=== PATIENT | female | born 1960 | race Caucasian/White ===

== ENCOUNTER 2020-12-05 16:22 | Observation (INO) | payer OTHER, MEDICARE ==
[~2020-12-05] VITALS: Ht 170.2 cm; Wt 63.5 kg
[~2020-12-05 16:22] MED LIST: CLARITIN10 MG PO; ECOTRIN81 MG PO; MIRALAX17 GM PO; NEURONTIN 300300 MG PO; NORCO 10-325 T1 EACH PO; OMEPRAZOLE20 M1 PO; PRAVASTATIN SOD10 MG PO; VITAMIN C 500500 MG PO; ZOFRAN ODT 4 MG4 MG PO; ZOFRAN4 MG PO
[2020-12-05 17:40] LABS: HEMOGLOBIN 14.1 gm/dl (12.3-15.3); WHITE BLOOD COUNT 10.9 K/UL (4.5-11.0)
[2020-12-05 18:05] LABS: BUN/CREATININE RATIO 23 (0-10)
[2020-12-06 05:01] LABS: HEMOGLOBIN 13.8 gm/dl (12.3-15.3); RED BLOOD COUNT 4.87 M/UL (4.00-5.10); WHITE BLOOD COUNT 12.1 K/UL (4.5-11.0)
[2020-12-06 05:24] LABS: BUN/CREATININE RATIO 25 (0-10)
[2020-12-06] MEDS ORDERED: AMOX TR-K CLV1 EAC4 PO (09:54)
[2020-12-06] MEDS ORDERED: LEVOCETIRIZINE D5 MG PO (09:56)
[2020-12-06] MEDS ORDERED: BREZTRI AEROS10.7 GM INH (09:57)
[2020-12-06] MEDS ORDERED: MELOXICAM15 MG PO (09:58)
[2020-12-06] MEDS ORDERED: SERTRALINE HCL100 MG PO (09:58)
[2020-12-06] MEDS ORDERED: VENTOLIN HFA 66.7 GM INH (09:59)
[2020-12-06] MEDS ORDERED: NITROSTAT0.4 MG SL (10:00)
--- NOTE | 2020-12-06 22:03 | NUR ---
PATIENT REFUSES BED-RAIL PADDING FOR SX PERCAUTIONS
[2020-12-07] MEDS ORDERED: KEPPRA500 MG PO (14:30)
== END 2020-12-07 13:53 | disposition left against medical advice (07) ==
LOC: ER1 16:22 → CDU 21:25 → MED SURG 4 12-06 15:54
PROVIDERS: Internal Medicine; Student in an Organized Health Care Education/Training Program; ADMIT Internal Medicine
DX: R56.9 Unspecified convulsions (principal); M51.36 Other intervertebral disc degeneration, lumbar region; K21.9 Gastro-esophageal reflux disease without esophagitis; F17.210 Nicotine dependence, cigarettes, uncomplicated; Z88.2 Allergy status to sulfonamides; Z20.822 Contact with and (suspected) exposure to COVID-19
CPT/HCPCS: ECHO; 36600; 70450; 70551; 71045; 72125; 72170; 80048; 80053; 80307; 81001; 82550; 82553; 82803; 83605; 83690; 83735; 83874; 84100; 84439; 84443; 84484; 84703; 85025; 93005; 93306; 95816; 96372; 96374; 96375; 99285; G0378; G0480; J1650; J1953; J2060; J2405; U0002

== ENCOUNTER → 2021-11-12 | Outpatient (CLI) | payer MEDICARE ==
[~2021-11-12] MED LIST changes: +AMOX TR-K CLV1 EAC4 PO; +BREZTRI AEROS10.7 GM INH; +KEPPRA500 MG PO; +LEVOCETIRIZINE D5 MG PO; +MELOXICAM15 MG PO; +NITROSTAT0.4 MG SL; +SERTRALINE HCL100 MG PO; +VENTOLIN HFA 66.7 GM INH
== END ==
LOC: RAD 10-05 08:00
DX: R13.10 Dysphagia, unspecified (principal); K22.2 Esophageal obstruction; K44.9 Diaphragmatic hernia without obstruction or gangrene
CPT/HCPCS: 74221